=== PATIENT | male | born 1965 | race Hispanic/Latino ===

== ENCOUNTER 2018-10-23 01:00 | Emergency (ER) | payer SELFPAY ==
[2018-10-23] MEDS ORDERED: IBUPROFEN 400 MG TAB ONE (01:45)
--- NOTE | 2018-10-23 01:45 | ER ---
Nurse's Notes [facility] Name: Gary Sena Age: 53 yrs Sex: Male : 1965 Arrival Date: 10/23/2018 Time: 01:03 Bed 18 Private MD: Diagnosis: Dislocation and sprain of joints and ligaments of shoulder girdle-left;Fall due to bumping against object;Nondisplaced fracture of greater tuberosity of left humerus;Essential (primary) hypertension Presentation: 10/23 01:21 Presenting complaint: Patient states: I fell at work on a scafolding. hit my left elbow rv on the ground and it popped out. Transition of care: patient was not received from another setting of care. Onset of symptoms was October 23, 2018 at 01:00. Risk Assessment: Do you want to hurt yourself or someone else? Patient reports no desire to harm self or others. Initial Sepsis Screen: Does the patient meet any 2 criteria? No. Patient's initial sepsis screen is negative. Does the patient have a suspected source of infection? No. Patient's initial sepsis screen is negative. 01:21 Method Of Arrival: Ambulatory rv 01:21 Acuity: REAL 3 rv 01:25 Care prior to arrival: Splint applied. Splint applied. rv Triage Assessment: 01:25 Injury Description: Deformity sustained to left shoulder. rv Historical: - Allergies: 01:22 No Known Allergies; rv - Home Meds: 01:22 None [Active]; rv - PMHx: 01:22 None; rv - PSHx: 01:22 None; rv - Immunization history:: Adult Immunizations up to date. - Social history:: Smoking status: Patient uses tobacco products, denies chronic smoking, but will smoke occasionally. - Family history:: not pertinent. - Ebola Screening: : No symptoms or risks identified at this time. Screenin:24 Abuse screen: Denies threats or abuse. Denies injuries from another. Nutritional rv screening: No deficits noted. Tuberculosis screening: No symptoms or risk factors identified. Fall Risk None identified. Assessment: 01:23 General: Appears in no apparent distress. uncomfortable, Behavior is calm, cooperative. rv Pain: Complains of pain in left shoulder. Neuro: Level of Consciousness is awake, alert, obeys commands, Oriented to person, place, time, situation. Cardiovascular: Patient's skin is warm and dry. Respiratory: Airway is patent. GI: No signs and/or symptoms were reported involving the gastrointestinal system. : No signs and/or symptoms were reported regarding the genitourinary system. EENT: No signs and/or symptoms were reported regarding the EENT system. Derm: Skin is intact. Musculoskeletal: Bony deformity noted of left shoulder Swelling absent. 02:00 Reassessment: Patient appears in no apparent distress at this time. Patient and/or cc3 family updated on plan of care and expected duration. Pain level reassessed. Patient is alert, oriented x 3, equal unlabored respirations, skin warm/dry/pink. Dr. Carbajal discharged the patient home with prescriptions given. No IV cannula in situ. Patient left ER vitally stable and ambulatory with his work colleague. No valuables left in the patient's room. Patient preferred his own arm sling to be applied on, Dr. Carbajal informed. Patient denies pain at this time. Patient states feeling better. Patient states symptoms have improved. Vital Signs: 01:30 BP 193 / 102; Pulse 66; Resp 16; Temp 98.1(O); Pulse Ox 100% ; Weight 77.11 kg; Height cc3 5 ft. 3 in. (160.02 cm); 02:00 BP 179 / 97; Pulse 68; Resp 17 S; Pulse Ox 100% on R/A; cc3 01:30 Body Mass Index 30.11 (77.11 kg, 160.02 cm) cc3 ED Course: 01:03 Patient arrived in ED. ag3 01:18 Louis Carbajal MD is Attending Physician. oma 01:22 Triage completed. rv 01:25 Yoly Moffett is Primary Nurse. cc3 01:25 Patient has correct armband on for positive identification. Placed in gown. Bed in low rv position. Call light in reach. Side rails up X 1. Pulse ox on. NIBP on. 01:25 Splint/sling/ice applied as appropriate. Patient placed in the treatment room, on a rv stretcher, on pulse oximetry. 01:40 Shoulder Left (2 View) XRAY In Process Unspecified. EDMS 01:50 Angel Venegas MD is Referral Physician. oma 02:00 No provider procedures requiring assistance completed. Patient did not have IV access cc3 during this emergency room visit. Administered Medications: 01:30 Drug: Motrin 600 mg Route: PO; cc3 02:00 Follow up: Response: No adverse reaction; Pain is decreased cc3 Outcome: 01:44 Discharge ordered by . oma 02:00 Discharged to home ambulatory. cc3 02:00 Condition: stable 02:00 Discharge instructions given to patient, Instructed on discharge instructions, follow up and referral plans. medication usage, Demonstrated understanding of instructions, follow-up care, medications, Prescriptions given X 2. 02:07 Patient left the ED. cc3 Signatures: Dispatcher [employer] EDMS Louis Carbajal MD MD cha Vicente, Ronaldo, RN RN Yoly Reaves cc3 Ila Sharpe3 Corrections: (The following items were deleted from the chart) 03:27 02:00 Reassessment: Patient appears in no apparent distress at this time. Patient cc3 and/or family updated on plan of care and expected duration. Pain level reassessed. Patient is alert, oriented x 3, equal unlabored respirations, skin warm/dry/pink. Dr. Carbajal discharged the patient home with prescriptions given. No IV cannula in situ. Patient left ER vitally stable and ambulatory with his work colleague. No valuables left in the patient's room. Patient denies pain at this time. Patient states feeling better. Patient states symptoms have improved. cc3
[2018-10-23] MEDS ORDERED: IBUPROFEN 200 MG TAB PO ONE (01:46)
--- NOTE | 2018-10-23 01:46 | EDPHYS ---
Physician Documentation [facility] Name: Gary Sena Age: 53 yrs Sex: Male : 1965 Arrival Date: 10/23/2018 Time: 01:03 Bed 18 Private MD: ED Physician Louis Carbajal HPI: 10/23 01:19 This 53 yrs old Male presents to ER via Unassigned with complaints of Shoulder oma Injury. 01:19 The patient or guardian complains of decreased range of motion, pain. left shoulder. oma Context: The problem was sustained at work. Onset: The symptoms/episode began/occurred just prior to arrival. Modifying factors: the symptoms are alleviated by remaining still, The symptoms are aggravated by movement. Associated signs and symptoms: The patient has no apparent associated signs or symptoms. Severity of symptoms: At their worst the symptoms were moderate, in the emergency department the symptoms are unchanged. The patient has not experienced similar symptoms in the past. Historical: - Allergies: : No Known Allergies; rv - Home Meds: : None [Active]; rv - PMHx: : None; rv - PSHx: :22 None; rv - Immunization history:: Adult Immunizations up to date. - Social history:: Smoking status: Patient uses tobacco products, denies chronic smoking, but will smoke occasionally. - Family history:: not pertinent. - Ebola Screening: : No symptoms or risks identified at this time. ROS: 01:19 Constitutional: Negative for fever, chills, and weight loss, Eyes: Negative for injury, oma pain, redness, and discharge, ENT: Negative for injury, pain, and discharge, Neck: Negative for injury, pain, and swelling, Cardiovascular: Negative for chest pain, palpitations, and edema, Respiratory: Negative for shortness of breath, cough, wheezing, and pleuritic chest pain, Abdomen/GI: Negative for abdominal pain, nausea, vomiting, diarrhea, and constipation, Back: Negative for injury and pain, : Negative for injury, bleeding, discharge, and swelling, Skin: Negative for injury, rash, and discoloration, Neuro: Negative for headache, weakness, numbness, tingling, and seizure, Psych: Negative for depression, anxiety, suicide ideation, homicidal ideation, and hallucinations, Allergy/Immunology: Negative for hives, rash, and allergies, Endocrine: Negative for neck swelling, polydipsia, polyuria, polyphagia, and marked weight changes, Hematologic/Lymphatic: Negative for swollen nodes, abnormal bleeding, and unusual bruising. 01:19 MS/extremity: Positive for decreased range of motion, pain, tenderness, of the anterior aspect of left shoulder and posterior aspect of left shoulder. Exam: 01:19 Constitutional: This is a well developed, well nourished patient who is awake, alert, oma and in no acute distress. Head/Face: Normocephalic, atraumatic. Eyes: Pupils equal round and reactive to light, extra-ocular motions intact. Lids and lashes normal. Conjunctiva and sclera are non-icteric and not injected. Cornea within normal limits. Periorbital areas with no swelling, redness, or edema. ENT: Nares patent. No nasal discharge, no septal abnormalities noted. Tympanic membranes are normal and external auditory canals are clear. Oropharynx with no redness, swelling, or masses, exudates, or evidence of obstruction, uvula midline. Mucous membranes moist. Neck: Trachea midline, no thyromegaly or masses palpated, and no cervical lymphadenopathy. Supple, full range of motion without nuchal rigidity, or vertebral point tenderness. No Meningismus. Chest/axilla: Normal chest wall appearance and motion. Nontender with no deformity. No lesions are appreciated. Cardiovascular: Regular rate and rhythm with a normal S1 and S2. No gallops, murmurs, or rubs. Normal PMI, no JVD. No pulse deficits. Respiratory: Lungs have equal breath sounds bilaterally, clear to auscultation and percussion. No rales, rhonchi or wheezes noted. No increased work of breathing, no retractions or nasal flaring. Abdomen/GI: Soft, non-tender, with normal bowel sounds. No distension or tympany. No guarding or rebound. No evidence of tenderness throughout. Back: No spinal tenderness. No costovertebral tenderness. Full range of motion. Skin: Warm, dry with normal turgor. Normal color with no rashes, no lesions, and no evidence of cellulitis. Neuro: Awake and alert, GCS 15, oriented to person, place, time, and situation. Cranial nerves II-XII grossly intact. Motor strength 5/5 in all extremities. Sensory grossly intact. Cerebellar exam normal. Normal gait. Psych: Awake, alert, with orientation to person, place and time. Behavior, mood, and affect are within normal limits. 01:19 Musculoskeletal/extremity: Extremities: noted in the anterior aspect of left shoulder and posterior aspect of left shoulder: decreased ROM, pain. Vital Signs: 01:30 BP 193 / 102; Pulse 66; Resp 16; Temp 98.1(O); Pulse Ox 100% ; Weight 77.11 kg; Height cc3 5 ft. 3 in. (160.02 cm); 02:00 BP 179 / 97; Pulse 68; Resp 17 S; Pulse Ox 100% on R/A; cc3 01:30 Body Mass Index 30.11 (77.11 kg, 160.02 cm) cc3 MDM: 01:18 [facility] screened[facility] 01[facility]21 Data reviewed: vital signs, nurses notes, radiologic studies, plain films. [facility] 10/23 01:19 Order name: Shoulder Left (2 View) XRAY [facility] 10/23 01:19 Order name: Sling; Complete Time: 01:40 [facility] 10/23 01:19 Order name: Ice pack; Complete Time: 01:27 [facility] Administered Medications: 01:30 Drug: Motrin 600 mg Route: PO; cc3 02:00 Follow up: Response: No adverse reaction; Pain is decreased cc3 Disposition: 10/23/18 01:44 Discharged to Home. Impression: Dislocation and sprain of joints and ligaments of shoulder girdle - left, Fall due to bumping against object, Nondisplaced fracture of greater tuberosity of left humerus, Essential (primary) hypertension. - Condition is Stable. - Discharge Instructions: Shoulder Dislocation, Humerus Fracture Treated With Immobilization, Hypertension, Humerus Fracture Treated With Immobilization, Ixtz-an-[id number], Hypertension, Jnno-rc-Ifbg, How to Take Your Blood Pressure, Mlpe-ev-Upwt, Managing Your Hypertension, Shoulder Dislocation, Xucm-oa-Dssg. - Prescriptions for Ibuprofen 600 mg Oral Tablet - take 1 tablet by ORAL route every 6 hours As needed take with food; 21 tablet. Tylenol- Codeine #3 300-30 mg Oral Tablet - take 2 tablets by ORAL route every 6 hours As needed; 26 tablet. - Medication Reconciliation Form, Thank You Letter, Antibiotic Education, Prescription Opioid Use form. - Follow up: Private Physician; When: 2 - 3 days; Reason: Recheck today's complaints, Continuance of care, Re-evaluation by your physician. Follow up: Angel Venegas MD; When: 2 - 3 days; Reason: Recheck today's complaints, Re-evaluation by your physician. - Problem is new. - Symptoms have improved. Signatures: Dispatcher [employer] EDLouis Weeks MD MD cha Vicente, Ronaldo, RN RN Yoly Moffett cc3 Corrections: (The following items were deleted from the chart) 01:46 01:44 10/23/2018 01:44 Discharged to Home. Impression: Dislocation and sprain of joints oma and ligaments of shoulder girdle - left; Fall due to bumping against object; Nondisplaced fracture of greater tuberosity of left humerus. Condition is Stable. Discharge Instructions: Shoulder Dislocation, Shoulder Dislocation, Isxi-lj-Arcd. Forms are Medication Reconciliation Form, Thank You Letter, Antibiotic Education, Prescription Opioid Use. Follow up: Private Physician; When: 2 - 3 days; Reason: Recheck today's complaints, Continuance of care, Re-evaluation by your physician. Problem is new. Symptoms have improved. oma 01:50 01:46 10/23/2018 01:44 Discharged to Home. Impression: Dislocation and sprain of joints oma and ligaments of shoulder girdle - left; Fall due to bumping against object; Nondisplaced fracture of greater tuberosity of left humerus; Essential (primary) hypertension. Condition is Stable. Discharge Instructions: Shoulder Dislocation, Shoulder Dislocation, Kxbr-tz-Beqm. Forms are Medication Reconciliation Form, Thank You Letter, Antibiotic Education, Prescription Opioid Use. Follow up: Private Physician; When: 2 - 3 days; Reason: Recheck today's complaints, Continuance of care, Re-evaluation by your physician. Problem is new. Symptoms have improved. oma 02:07 01:50 10/23/2018 01:44 Discharged to Home. Impression: Dislocation and sprain of joints cc3 and ligaments of shoulder girdle - left; Fall due to bumping against object; Nondisplaced fracture of greater tuberosity of left humerus; Essential (primary) hypertension. Condition is Stable. Discharge Instructions: Shoulder Dislocation, Shoulder Dislocation, Omsi-ai-Wjwc, Humerus Fracture Treated With Immobilization, Hypertension, Humerus Fracture Treated With Immobilization, Xovf-hj-Aadn, Hypertension, Isev-le-Mdxt, How to Take Your Blood Pressure, Oqwz-nx-Hpqd, Managing Your Hypertension. Prescriptions for Ibuprofen 600 mg Oral Tablet - take 1 tablet by ORAL route every 6 hours As needed take with food; 21 tablet, Tylenol-Codeine #3 300-30 mg Oral Tablet - take 2 tablets by ORAL route every 6 hours As needed; 26 tablet. and Forms are Medication Reconciliation Form, Thank You Letter, Antibiotic Education, Prescription Opioid Use. Follow up: Private Physician; When: 2 - 3 days; Reason: Recheck today's complaints, Continuance of care, Re-evaluation by your physician. Follow up: Dr. Angel Venegas; When: 2 - 3 days; Reason: Recheck today's complaints, Re-evaluation by your physician. Problem is new. Symptoms have improved. oma
--- NOTE | 2018-10-23 08:30 | RAD REPORT ---
EXAM DESCRIPTION: RAD - Shoulder Left 2 View - 10/23/2018 1:39 am CLINICAL HISTORY: Fall, left shoulder pain COMPARISON: None. TECHNIQUE: Internal and external rotation views of the left shoulder were obtained. FINDINGS: No humeral head dislocation or acute fracture changes. There are contour changes along the superolateral humeral head that may indicate prior dislocation. This can be correlated with history. Patient has degenerative change at the AC joint with minimal spurring encroaching into the acromial humeral joint space. There degenerative changes along the undersurface of the acromion as well. The a cromial humeral joint space is normal range. No abnormal soft tissue calcifications. Scapula appears to be intact. Ribs and parenchyma of the upper chest also without acute finding. IMPRESSION: Negative two-view left shoulder examination for acute finding Acromion and AC joint degenerative change with normal acromial humeral joint space. Contour changes of the humeral head that may indicate Hill-Sachs deformity from prior dislocation.
== END 2018-10-23 02:07 | disposition home or self-care (01) ==
LOC: ER 01:00
DX: S43.92XA Sprain of unspecified parts of left shoulder girdle, initial encounter (principal); S42.255A Nondisplaced fracture of greater tuberosity of left humerus, initial encounter for closed fracture; W18.00XA Striking against unspecified object with subsequent fall, initial encounter; Z72.0 Tobacco use
CPT/HCPCS: 99284

== ENCOUNTER 2018-10-26 08:50 | Emergency (ER) | payer OTHER, SELFPAY ==
--- NOTE | 2018-10-26 09:56 | EDPHYS ---
Physician Documentation [facility] Name: Gary Sena Age: 53 yrs Sex: Male : 1965 Arrival Date: 10/26/2018 Time: 08:53 Bed 4 Private MD: ED Physician Gustavo Rodriguez HPI: 10/26 08:57 This 53 yrs old Male presents to ER via Unassigned with complaints of Shoulder rn Injury. 08:57 The patient or guardian complains of decreased range of motion, deformity, an injury, rn pain. left shoulder. Onset: The symptoms/episode began/occurred just prior to arrival. Modifying factors: the symptoms are alleviated by nothing. The symptoms are aggravated by movement, rotation of arm. Associated signs and symptoms: Pertinent negatives: chest pain, neck pain, tingling. Severity of symptoms: At their worst the symptoms were mild, in the emergency department the symptoms are unchanged. The patient has not experienced similar symptoms in the past. Reports slipped and fall at work [employer], last PO 3.5 hours ago, never had shoulder dislocation, feels like dislocated. No other injury.. Historical: - Allergies: 09:00 No Known Allergies; hj - PMHx: 09:00 None; hj - PSHx: 09:00 None; hj - Immunization history:: Adult Immunizations up to date. - Social history:: Smoking status: Patient/guardian denies using tobacco, Patient/guardian denies using alcohol. - Family history:: not pertinent. - Ebola Screening: : Patient negative for fever greater than or equal to 101.5 degrees Fahrenheit, and additional compatible Ebola Virus Disease symptoms Patient denies exposure to infectious person Patient denies travel to an Ebola-affected area in the 21 days before illness onset. - Hospitalizations: : No recent hospitalization is reported. ROS: 08:57 Neck: Negative for injury, pain, and swelling, Cardiovascular: Negative for chest pain rn MS/Extremity: + left shoulder injury and pain Neuro: Negative for headache, weakness, numbness, tingling, and seizure. Exam: 08:57 Constitutional: This is a well developed, well nourished patient who is awake, alert, rn and in no acute distress. MS/ Extremity: Pulses equal, no cyanosis. Neurovascular intact. Left arm held in passive flexion by right arm, + glenohumeral joint feels empty on lateral side Neuro: Awake and alert, GCS 15, Motor strength 5/5 in all extremities. Sensory grossly intact. Cerebellar exam normal. Vital Signs: 09:01 BP 216 / 120; Pulse 80; Resp 18; Temp 98.1(TE); Pulse Ox 100% on R/A; Weight 84.37 kg; hj Height 5 ft. 6 in. (167.64 cm); Pain 10/10; 09:01 Body Mass Index 30.02 (84.37 kg, 167.64 cm) hj Procedures: 09:40 Reduction: of the left shoulder, using traction, manipulation, Immobilized with rn shoulder immobilizer. Patient tolerated well. Post reduction film - reveals normal alignment. MDM: 08:53 Patient medically screened. rn 09:40 Differential diagnosis: Anterior dislocation with fracture, Anterior dislocation rn without fracture. Data reviewed: vital signs, nurses notes, radiologic studies, plain films. Test interpretation: by ED physician or midlevel provider: plain radiologic studies, xray left shoulder with anterior dislocation. Counseling: I had a detailed discussion with the patient and/or guardian regarding: the historical points, exam findings, and any diagnostic results supporting the discharge/admit diagnosis, radiology results, the need for outpatient follow up, to return to the emergency department if symptoms worsen or persist or if there are any questions or concerns that arise at home. Response to treatment: the patient's symptoms have markedly improved after treatment, and as a result, I will discharge patient. Special discussion: I discussed with the patient/guardian in detail that at this point there is no indication for admission to the hospital. It is understood, however, that if the symptoms persist or worsen the patient needs to return immediately for re-evaluation. Based on the history and exam findings, there is no indication for further emergent testing or inpatient evaluation. I discussed with the patient/guardian the need to see the orthopedic surgeon for further evaluation of the symptoms. ED course: Patient s/p reduction, patient declined any medication for reduction, a few positions tried, successful on third attempt, NV intact after reduction.. 09:55 ED course: Has appt with ortho tomorrow for further eval.. rn 10/26 08:57 Order name: XRAY Shoulder LEFT 2 view rn 10/26 09:40 Order name: XRAY Shoulder (1 View) rn 10/26 08:57 Order name: NPO; Complete Time: 09:02 rn 10/26 09:42 Order name: Shoulder Immobilizer; Complete Time: 09:42 rn Administered Medications: No medications were administered Disposition: 10/26/18 09:55 Discharged to Home. Impression: Recurrent dislocation, left shoulder. - Condition is Stable. - Discharge Instructions: Shoulder Dislocation. - Medication Reconciliation Form, Thank You Letter, Antibiotic Education, Prescription Opioid Use form. - Follow up: Private Physician; When: As needed; Reason: Recheck today's complaints, Re-evaluation by your physician. - Problem is new. - Symptoms have improved. Signatures: Dispatcher [employer] EDMS Gustavo Rodriguez MD MD rn Joaquin, Henry, RN RN hj Corrections: (The following items were deleted from the chart) 10:05 09:55 10/26/2018 09:55 Discharged to Home. Impression: Recurrent dislocation, left hj shoulder. Condition is Stable. Forms are Medication Reconciliation Form, Thank You Letter, Antibiotic Education, Prescription Opioid Use. Follow up: Private Physician; When: As needed; Reason: Recheck today's complaints, Re-evaluation by your physician. Problem is new. Symptoms have improved. rn
--- NOTE | 2018-10-26 09:56 | ER ---
Nurse's Notes [facility] Name: Gary Sena Age: 53 yrs Sex: Male : 1965 Arrival Date: 10/26/2018 Time: 08:53 Bed 4 Private MD: Diagnosis: Recurrent dislocation, left shoulder Presentation: 10/26 08:58 Presenting complaint: Patient states: i dislocated my L shoulder before, around September due to a fall, i came in here and they put it back in place, today, i was trying to lift my L shoulder then i heard a popped and i think its not in place again; last meal- 5:30 am today;. Transition of care: patient was not received from another setting of care. Onset of symptoms was October 26, 2018. Risk Assessment: Do you want to hurt yourself or someone else? Patient reports no desire to harm self or others. Initial Sepsis Screen: Does the patient meet any 2 criteria? No. Patient's initial sepsis screen is negative. Does the patient have a suspected source of infection? No. Patient's initial sepsis screen is negative. Care prior to arrival: None. 08:58 Method Of Arrival: Ambulatory 08:58 Acuity: REAL 4 hj Triage Assessment: 09:01 General: Appears in no apparent distress. uncomfortable, Behavior is calm, cooperative, hj appropriate for age. Pain: Complains of pain in left shoulder. EENT: No signs and/or symptoms were reported regarding the EENT system. Neuro: Level of Consciousness is awake, alert, obeys commands, Oriented to person, place, time, situation, Appropriate for age. Cardiovascular: Capillary refill < 3 seconds Patient's skin is warm and dry. Respiratory: Airway is patent Respiratory effort is even, unlabored, Respiratory pattern is regular, symmetrical. GI: No signs and/or symptoms were reported involving the gastrointestinal system. : No signs and/or symptoms were reported regarding the genitourinary system. Derm: No signs and/or symptoms reported regarding the dermatologic system. Musculoskeletal: Reports pain in left shoulder. 10:04 Injury Description: dislocation. hj Historical: - Allergies: 09:00 No Known Allergies; hj - PMHx: 09:00 None; hj - PSHx: 09:00 None; hj - Immunization history:: Adult Immunizations up to date. - Social history:: Smoking status: Patient/guardian denies using tobacco, Patient/guardian denies using alcohol. - Family history:: not pertinent. - Ebola Screening: : Patient negative for fever greater than or equal to 101.5 degrees Fahrenheit, and additional compatible Ebola Virus Disease symptoms Patient denies exposure to infectious person Patient denies travel to an Ebola-affected area in the 21 days before illness onset. - Hospitalizations: : No recent hospitalization is reported. Screenin:00 Abuse screen: Denies threats or abuse. Denies injuries from another. Nutritional hj screening: No deficits noted. Tuberculosis screening: No symptoms or risk factors identified. Fall Risk None identified. Assessment: 09:02 Reassessment: see triage for assessment;. hj 09:40 Reassessment: assisted ED MD for closed reduction of L shoulder dislocation;. Vital Signs: 09:01 BP 216 / 120; Pulse 80; Resp 18; Temp 98.1(TE); Pulse Ox 100% on R/A; Weight 84.37 kg; hj Height 5 ft. 6 in. (167.64 cm); Pain 10/10; 09:01 Body Mass Index 30.02 (84.37 kg, 167.64 cm) ED Course: 08:53 Patient arrived in ED. mr 08:53 Gareth Rojas, LEA is Primary Nurse. hj 08:53 Gustavo Rodriguez MD is Attending Physician. rn 09:00 Triage completed. hj 09:01 Arm band placed on right wrist. hj 09:01 Patient has correct armband on for positive identification. Bed in low position. Call light in reach. Side rails up X 1. Adult w/ patient. 09:25 XRAY Shoulder LEFT 2 view In Process Unspecified. EDMS 09:41 Assist provider with reduction of left shoulder using manipulation, Set up for hj procedure. Performed by Gustavo Rodriguez MD Immobilized with sling, Patient tolerated well. 09:41 Assist provider with reduction of left shoulder using manipulation, Performed by Gustavo Rodriguez MD Immobilized with shoulder immobilizer Patient tolerated well. 09:51 XRAY Shoulder (1 View) In Process Unspecified. EDMS 10:04 Patient did not have IV access during this emergency room visit. hj Administered Medications: No medications were administered Outcome: 09:55 Discharge ordered by . rn 10:03 Discharged to home ambulatory, with environmental health and safety leader judith 10:03 Condition: stable 10:03 Discharge instructions given to patient, Instructed on discharge instructions, follow up and referral plans. Demonstrated understanding of instructions, follow-up care. 10:05 Patient left the ED. judith Signatures: Dispatcher [employer] Lilia Vargas Roman, MD MD rn Joaquin, Henry, RN RN hj Peltier, Brian, RN RN bp
--- OUTSIDE RECORDS SUMMARY | 2018-10-26 12:50 | XMS REPORT ---
:1965 [facility] Address [address] [place] [address] Dr. Vazquez [address] [place] [id number] Care Team Providers Name Role Phone Unavailable Unavailable Unavailable Problems This patient has no known problems. Allergies, Adverse Reactions, Alerts This patient has no known allergies or adverse reactions. Medications This patient has no known medications.
--- NOTE | 2018-10-26 15:21 | RAD REPORT ---
EXAM DESCRIPTION: RAD - Shoulder 1 View - 10/26/2018 12:43 pm CLINICAL HISTORY: Shoulder pain COMPARISON: October 23 TECHNIQUE: Internal and external rotation views were obtained from supine positioning FINDINGS: No fracture is identified. Hill-Sachs deformity is seen along the superolateral humeral he ad. This is typically associated with anterior dislocation. No Bankart lesion evident. Dislocation of the humeral head is not currently suspected. Posterior dislocations can be difficult to identified. Scapula why imaging or transaxillary imaging can be performed there is concern for a posterior disloc ation. Degenerative change seen at the AC joint and undersurface of the acromion. IMPRESSION: No anterior dislocation identified. Posterior dislocation can be difficult to visualize. Scapula while or transaxillary imaging can be pe rformed if there is concern for posterior dislocation. Hill-Sachs deformity is present indicating 1 or more prior anterior dislocations.
--- NOTE | 2018-10-26 15:31 | RAD REPORT ---
EXAM DESCRIPTION: RAD - Shoulder Left 2 View - 10/26/2018 3:12 pm CLINICAL HISTORY: Shoulder deformity COMPARISON: October 23, 2018 TECHNIQUE: Internal and external rotation views of the left shoulder were obtained. FINDINGS: Anterior dislocation is present with the humeral head displaced inferior and medial to the bony glenoid. Hill-Sachs deformity is evident. No Bankart lesion seen. Degenerative change present a t the AC joint and undersurface of the acromion. No pathologic bone process. IMPRESSION: Anterior dislocation of the left humeral head.
== END 2018-10-26 10:05 | disposition home or self-care (01) ==
LOC: ER 08:50
PROC: 0RSKXZZ Reposition Left Shoulder Joint, External Approach (ICD-10-PCS; principal; 2018-10-26)
DX: M24.412 Recurrent dislocation, left shoulder (principal); W01.0XXA Fall on same level from slipping, tripping and stumbling without subsequent striking against object, initial encounter
CPT/HCPCS: 73020; 99284